=== PATIENT | male | born 1995 | race Caucasian/White ===

== ENCOUNTER 2017-03-01 04:57 | Emergency (ER) | payer OTHER ==
[~2017-03-01] VITALS: Ht 182.9 cm; Wt 68.0 kg
[2017-03-01 06:47] VITALS: BP 105/52
== END 2017-03-01 06:47 | disposition other institution (70) ==
LOC: ED 04:57
DX: Z02.89 Encounter for other administrative examinations (principal)

== ENCOUNTER 2019-04-16 22:38 | Emergency (ER) | payer OTHER | END 2019-04-17 00:27 | disposition other institution (70) | LOC: ED 22:38 | DX: Z02.89 Encounter for other administrative examinations (principal) ==

== ENCOUNTER 2019-04-16 22:38 | Emergency (ER) | payer OTHER ==
[~2019-04-16] VITALS: Ht 175.3 cm; Wt 72.6 kg
[2019-04-16 22:40] VITALS: BP 129/74; Ht 175.3 cm; Wt 72.6 kg
== END 2019-04-17 00:27 | disposition other institution (70) ==
LOC: ED 22:38
DX: S20.211A Contusion of right front wall of thorax, initial encounter (principal); S06.9X9A Unspecified intracranial injury with loss of consciousness of unspecified duration, initial encounter; J45.909 Unspecified asthma, uncomplicated; Y04.8XXA Assault by other bodily force, initial encounter; Y93.89 Activity, other specified; Y92.89 Other specified places as the place of occurrence of the external cause; Y99.8 Other external cause status